=== PATIENT | female | born 1955 ===

== ENCOUNTER 2018-01-31 08:37 | Emergency (ER) | payer BC ==
[2018-01-31 08:45] VITALS: BP 124/77
--- NOTE | 2018-01-31 08:57 | UC ---
Respiratory Complaint HPI - HPI Summary HPI Summary: 62 y/o female presents to the urgent care c/o productive cough w/ green phlegm for the past 11 days. Pt states symptoms started w/ a common cold and has worsen w/ the days despite taking OTC medications. Pt states she is and everyday smoker and she has noticed a lot of chest congestion, wheezing, HOOVER and chills for the past 2 days. pt also c/o left shoulder blade pain w/ movement for the past 3 days. Pain is 5/10 sharp w/ abduction or heavy lifting. Pt states it is not cardiac related since she was seen by her Art Critic last week and stress test, echo and EKG were normal. Pt denies fever,SOB, chest pain , abdominal pain, N/V/D. - History of Current Complaint Chief Complaint: UCRespiratory Stated Complaint: COUGH, NIGHT SWEATS Time Seen by Provider: 01/31/18 08:56 Hx Obtained From: Patient Onset/Duration: Gradual Onset, Lasting Weeks - 2 weeks, Still Present, Worse Since - 5 days Timing: Intermittent Episodes Severity Initially: Mild Severity Currently: Moderate Pain Intensity: 6 - left shoulder pain Pain Scale Used: 0-10 Numeric Character: Cough: Productive, Sputum Description: - yellowish Aggravating Factors: Recumbent Position Alleviating Factors: OTC Meds Associated Signs And Symptoms: Positive: Dyspnea - mild, Chills, Wheezing, URI, Nasal Congestion, Sinus Discomfort - Risk Factors Pulmonary Embolism Risk Factors: Negative Cardiac Risk Factors: Negative Pseudomonas Risk Factors: Negative Tuberculosis Risk Factors: Negative - Allergies/Home Medications Allergies/Adverse Reactions: Allergies Allergy/AdvReac Type Severity Reaction Status Date / Time No Known Allergies Allergy Verified 01/16/16 08:42 Home Medications: Home Medications Aspirin [Aspirin Childrens 81 MG] 81 mg PO 01/31/18 [History] PMH/Surg Hx/FS Hx/Imm Hx Previously Healthy: Yes Cardiovascular History: Hypertension, Myocardial Infarction - Surgical History Surgical History: Yes Surgery Procedure, Year, and Place: Heart stents placed at [facility] [place] x3 - Family History Known Family History: Positive: Cardiac Disease - Social History Occupation: Unemployed Lives: With Family Alcohol Use: Rare Substance Use Type: None Smoking Status (MU): Light Every Day Tobacco Smoker Type: Cigarettes Have You Smoked in the Last Year: No Review of Systems All Other Systems Reviewed And Are Negative: Yes Constitutional: Positive: Chills, Fatigue Skin: Positive: Negative Eyes: Positive: Negative ENT: Positive: Nasal Discharge - yellowish, Sinus Congestion Respiratory: Positive: Shortness Of Breath - mild, Cough - productive w/ yellowish phlegm, Other - wheeaing Cardiovascular: Positive: Negative Gastrointestinal: Positive: Negative Genitourinary: Positive: Negative Motor: Positive: Negative Neurovascular: Positive: Negative Musculoskeletal: Positive: Decreased ROM - left shoulder, Other: - left shoulder pain Neurological: Positive: Negative Psychological: Positive: Negative Is Patient Immunocompromised?: No Physical Exam - Summary Physical Exam Summary: Vital Signs Reviewed: Yes General: well developed, well nourished female sitting in the examining table w/ o any apparent distress Eyes: Positive: Conjunctiva Clear - PERRLA, EOMI, fundi grossly normal ENT: Positive: Normal ENT inspection, Hearing grossly normal, Pharynx normal, Nasal congestion - edematous and erythematous nasal mucosa, Nasal drainage - yellowish drainage, TMs normal. Negative: Tonsillar swelling, Tonsillar exudate Neck: Positive: Supple, Nontender, No Lymphadenopathy Respiratory: no orthopnea or dyspnea. Able to speak in full sentences, no retractions or accessory muscle use, no tripod position, stridor, or head bobbing. Positive breath sounds bilaterally. diffuse scattered wheezing and rhonchi on b/L lungs, no crackles or rales. Cardiovascular: Positive: RRR, No Murmur, Pulses Normal, Brisk Capillary Refill Abdomen Description: Positive: Nontender, No Organomegaly, Soft. Negative: CVA Tenderness (R), CVA Tenderness (L) Bowel Sounds: Positive: Present Musculoskeletal Exam: Normal Musculoskeletal: Positive: Strength Intact, ROM Intact, No Edema Neurological Exam: Normal Psychological Exam: Normal Skin Exam: Normal Triage Information Reviewed: Yes Vital Signs: Initial Vital Signs Temp 97.2 F 01/31/18 08:40 Pulse 105 01/31/18 08:40 Resp 18 01/31/18 08:40 BP 124/77 01/31/18 08:40 Pulse Ox 5 01/31/18 08:40 Diagnostic Evaluation - Laboratory O2 Sat by Pulse Oximetry: 5 Respiratory Course/Dx - Course Course Of Treatment: 62 y/o female presents to the urgent care c/o productive cough w/ green phlegm for the past 11 days. Pt states symptoms started w/ a common cold and has worsen w/ the days despite taking OTC medications. Pt states she is and everyday smoker and she has noticed a lot of chest congestion , wheezing, HOOVER and chills for the past 2 days. pt also c/o left shoulder blade pain w/ movement for the past 3 days. Pain is 5/10 sharp w/ abduction or heavy lifting. Pt states it is not cardiac related since she was seen by her Art Critic last week and stress test, echo and EKG were normal. Pt denies fever,SOB, chest pain, abdominal pain, N/V/D.Hx obtained. Hx obtained. Pt w/ B/ L lungs scattered wheezing and rhonchi on examination. O2Sat:97%. Pt is and everyday smoker. Pt probably w/ a COPD exacerbation. Chest X-ray ordered: impression: findings of COPD, no acute disease observed. Left shoulder X-ray ordered:negative for fracture. Pt probably w/ rotatorcuff tendonitis .Pt given at the clinic Prednisone 60 mg PO and Duoneb treatment. Pt tolerated well medications and her lungs improved. Pt states feeling better. Pt will be tx w/ Rx Doxycycline PO , Prednisone taper dose and Inhaler. Strongly advised to f/u with her PCP for further management. Pt's shoulder immobilized w/ a shoulder sling, Also give a referral w/ orthopedic DR Hewitt for further evaluation and treatment. D/c instructions explained. Pt understood and agreed with plan of care. Pt left the clinic hemodynamically stable and ambulating. - Differential Dx/Diagnosis Differential Diagnosis/HQI/PQRI: Asthma, Bronchitis, Exacerbation Of COPD, Lower Resp Infection, Sinusitis, Other - pneumothorax Provider Diagnoses: 1- COPD exacerbation due to bronchitis. 2- Wheezing. 3- Left shoulder pain. 4- Left shoulder rotatorcuff tendonitis Discharge - Sign-Out/Discharge Documenting (check all that apply): Patient Departure - d/c home All imaging exams completed and their final reports reviewed: Yes - Discharge Plan Condition: Stable Disposition: HOME Prescriptions: Albuterol HFA INHALER* [Ventolin HFA Inhaler*] 1 - 2 puff INH Q6H PRN #1 mdi PRN Reason: Wheezing DOXYcycline CAP(*) [DOXYcycline 100MG CAP(*)] 100 mg PO BID #20 cap predniSONE TAB* [Deltasone 20 MG TAB*] 20 mg PO DAILY #8 tab Patient Education Materials: Rotator Cuff Tendinitis (ED), Acute Bronchitis (ED ), COPD (Chronic Obstructive Pulmonary Disease) (ED) Referrals: Steve Canchola MD [Primary Care Provider] - 3 Days Steve Hewitt MD [Medical Doctor] - 1 Week Additional Instructions: 1-Please take full course of antibiotic to avoid resistance. 2- Use the albuterol inhaler to alleviate cough. Increase fluid intake, rest and eat well. 3- If symptoms do not improve or worsen or your develop SOB with fever and severe wheezing please go immediately to the ER further evaluation and treatment. 4- F/u with your PCP in 2-3 days for further management you may be developing COPD 5-Please keep your shoulder immobilized with the shoulder sling for 3-4 days and then resume movement slowly. Take Ibuorifen PO q6-8hrs prn after meals to alleviate pain. 3- Please f/u with Orthopedic or your PCP in 1 week is not improvement of symptoms for further evaluation and treatment. - Billing Disposition and Condition Condition: STABLE Disposition: Home
[2018-01-31] MEDS ORDERED: predniSONE TAB* 20 MG PO ONE (09:15)
[2018-01-31] MEDS ORDERED: Albuterol/Ipratropium NEB.SOL* Albuterol 2.5 MG/Ipratropium 0.5 MG 3 ML INH ONE (09:19)
== END 2018-01-31 10:20 | disposition home or self-care (01) ==
LOC: UCEAST 08:37
DX: J44.9 Chronic obstructive pulmonary disease, unspecified (principal); M75.102 Unspecified rotator cuff tear or rupture of left shoulder, not specified as traumatic; I10 Essential (primary) hypertension; I25.2 Old myocardial infarction; F17.210 Nicotine dependence, cigarettes, uncomplicated
CPT/HCPCS: 71046; 99213; A9270-GY; G0463; J7512